=== PATIENT | female | born 1970 | race Hispanic/Latino ===

== ENCOUNTER 2018-02-15 15:02 | Outpatient (CLI) | payer BC ==
--- NOTE | 2018-02-15 16:04 | XRay Report ---
CHEST TWO VIEWS: 02/15/18 15:02:00 CLINICAL: Right chest pain. Right upper quadrant abdominal pain. COMPARISON: None FINDINGS: Normal heart and pulmonary vasculature. The lungs are normally expanded and clear. No airspace disease or pleural effusion. Mild lower thoracic and upper lumbar dextroscoliosis. Normal soft tissues. The upper abdomen is unremarkable. IMPRESSION: Negative chest.
--- NOTE | 2018-02-15 16:06 | XRay Report ---
XRAY RIGHT RIBS 2 VIEWS: 02/15/18 15:02:00 CLINICAL: Right-sided chest pain. FINDINGS: No rib fracture or rib lesion. The lungs are normally expanded and clear. No airspace disease or pleural effusion. No pneumothorax. Normal heart and pulmonary vasculature. Lower thoracic and upper lumbar disc dextroscoliosis. IMPRESSION: Negative with no rib fracture.
== END 2018-02-15 15:03 | disposition home or self-care (01) ==
LOC: SPVIMAG 15:02
PROVIDERS: ATTEND Internal Medicine Gastroenterology
DX: M41.85 Other forms of scoliosis, thoracolumbar region (principal)
CPT/HCPCS: 71046